=== PATIENT | female | born 1985 | race Two or more races ===

== ENCOUNTER 2024-11-29 21:14 | Emergency (ER) | payer OTHER ==
[~2024-11-29] VITALS: Ht 165.1 cm; Wt 90.8 kg
[2024-11-30 00:08] VITALS: TEMP 98.5; O2SAT 100
== END 2024-11-30 00:02 | disposition home or self-care (01) ==
LOC: ER 21:14
DX: O26.892 Other specified pregnancy related conditions, second trimester (principal); O9A.219 Injury, poisoning and certain other consequences of external causes complicating pregnancy, unspecified trimester; S86.812A Strain of other muscle(s) and tendon(s) at lower leg level, left leg, initial encounter; S39.91XA Unspecified injury of abdomen, initial encounter; M54.50 Low back pain, unspecified; R10.84 Generalized abdominal pain; R51.9 Headache, unspecified; Z3A.20 20 weeks gestation of pregnancy; V43.52XA Car driver injured in collision with other type car in traffic accident, initial encounter; Y93.89 Activity, other specified; Y92.89 Other specified places as the place of occurrence of the external cause; Y99.8 Other external cause status
CPT/HCPCS: A4606; A4663